=== PATIENT | female | born 1940 | race Caucasian/White ===

== ENCOUNTER 2022-01-22 08:18 | Emergency (ER) | payer OTHER ==
[~2022-01-22] VITALS: Ht 167.6 cm; Wt 63.5 kg
[2022-01-22 08:37] VITALS: BP_SYST 145
[2022-01-22] MEDS ORDERED: MAG HYDROX/AL HYDROX/SIMETH 30 ML, DICYCLOMINE HCL 20 MG, LIDOCAINE VISCOUS 2% 15ML (PO... PO ONE ×3 (09:15)
[2022-01-22 10:03] LABS: BASOPHILS # (AUTO) 0.4 K/uL (0.0-0.2); BASOPHILS % (AUTO) 4.4 % (0.0-2.0); EOSINOPHILS # (AUTO) 0.1 K/uL (0.0-0.4); EOSINOPHILS % (AUTO) 1.2 % (0.0-4.0); HEMATOCRIT 36.5 % (36-48); HEMOGLOBIN 12.1 g/dL (12.0-16.0); LYMPHOCYTES # (AUTO) 0.7 K/uL (1.0-5.5); LYMPHOCYTES % (AUTO) 8.8 % (20.5-51.5); MEAN CORPUSCULAR HEMOGLOBIN 30 pg (27-31); MEAN CORPUSCULAR HGB CONC 33 % (32-36); MEAN CORPUSCULAR VOLUME 89 fL (79.0-98.0); MONOCYTES # (AUTO) 0.9 K/uL (0.0-1.0); MONOCYTES % (AUTO) 10.7 % (1.7-9.3); NEUTROPHILS % (AUTO) 74.9 % (40.0-70.0); PLATELET COUNT (AUTO) 197 K/uL (130-430); RED BLOOD CELL COUNT(AUTO) 4.09 MIL/uL (4.2-6.2); RED CELL DISTRIBUTION WIDTH 18.6 % (9.0-15.0); WHITE BLOOD COUNT (AUTO) 8.1 K/uL (4.8-10.8)
[2022-01-22 10:20] LABS: ANION GAP 5 (5-15); CALCIUM 7.9 mg/dL (8.4-11.0); CHLORIDE 98 mmol/L (98-107); CREATININE 0.66 mg/dL (0.55-1.30); GLUCOSE 104 mg/dL (70-99); SODIUM SERUM 132 mmol/L (136-145); UREA NITROGEN, BLOOD 11 mg/dL (8-21)
[2022-01-22 10:26] LABS: ALANINE AMINOTRANSFERASE 17 U/L (12-78); ALBUMIN 3.3 g/dL (3.4-4.8); ASPARTATE AMINOTRANSFERASE 13 U/L (10-37); LIPASE 124 U/L (73-393); TOTAL BILIRUBIN 0.4 mg/dL (0.0-1.0)
[2022-01-22 11:47] LABS: BILIRUBIN,URINE NEGATIVE (NEGATIVE); BLOOD, URINE 3+ (NEGATIVE); CLARITY/URINE CLEAR (CLEAR); COLOR,URINE YELLOW (YELLOW); GLUCOSE,URINE NEGATIVE (NEGATIVE); KETONES,URINE NEGATIVE (NEGATIVE); LEUKOCYTE ESTERASE ,URINE NEGATIVE (NEGATIVE); NITRITE, URINE NEGATIVE (NEGATIVE); PH,URINE 6.5 (5.0-8.0); PROTEIN URINE NEGATIVE (NEGATIVE); UROBILINOGEN,URINE 0.2 (0.2-1.0)
[2022-01-22] MEDS ORDERED: ANT30 PO (12:03)
[2022-01-22] MEDS ORDERED: PRO40 PO (12:03)
[2022-01-22] MEDS ORDERED: DICY10CA13 PO (12:03)
[2022-01-22 13:18] LABS: BACTERIA,URINE FEW /HPF (None Seen); WBC,URINE 0-3 /HPF (0-3)
== END 2022-01-22 12:09 | disposition home or self-care (01) ==
LOC: SED 08:18
DX: C90.00 Multiple myeloma not having achieved remission (principal); K21.9 Gastro-esophageal reflux disease without esophagitis; I10 Essential (primary) hypertension; Z88.5 Allergy status to narcotic agent; Z79.899 Other long term (current) drug therapy
CPT/HCPCS: 36415; 74021; 80053; 81000; 83690; 85025; 99284; J2001

== ENCOUNTER 2022-02-04 10:38 | Emergency (ER) | payer OTHER ==
[~2022-02-04] VITALS: Ht 167.6 cm; Wt 62.1 kg
[~2022-02-04 10:38] MED LIST: ANT30 PO; DICY10CA13 PO; PRO40 PO
[2022-02-04 11:11] VITALS: BP_SYST 122
--- NOTE | 2022-02-04 11:18 | NUR ---
ERMD AT BEDSIDE
--- NOTE | 2022-02-04 11:20 | NUR ---
PLACED ON BED WITH ALL RAILS UP AND AT LOWEST LEVEL. VITAL SIGNS OBTAINED AND STABLE.
--- NOTE | 2022-02-04 11:20 | NUR ---
PT PLACED IN BED ON MONITOR, B/P, PULSE OX
[2022-02-04 11:22] VITALS: BP_SYST 122
[2022-02-04] MEDS ORDERED: DIPHENOXYLATE HCL/ATROP SULF 2.5 MG TAB PO ONE (12:45)
[2022-02-04] MEDS ORDERED: NACL 0.9% 1,000 ML IV ONE (12:45)
[2022-02-04 13:13] LABS: BASOPHILS % (AUTO) 0.4 % (0.0-2.0); EOSINOPHILS % (AUTO) 0.3 % (0.0-4.0); HEMATOCRIT 31.5 % (36-48); HEMOGLOBIN 10.2 g/dL (12.0-16.0); LYMPHOCYTES # (AUTO) 1.3 K/uL (1.0-5.5); LYMPHOCYTES % (AUTO) 33.9 % (20.5-51.5); MEAN CORPUSCULAR HEMOGLOBIN 29 pg (27-31); MEAN CORPUSCULAR HGB CONC 33 % (32-36); MEAN CORPUSCULAR VOLUME 89 fL (79.0-98.0); MONOCYTES # (AUTO) 0.2 K/uL (0.0-1.0); MONOCYTES % (AUTO) 6.1 % (1.7-9.3); NEUTROPHILS # (AUTO) 2.2 K/uL (1.8-7.7); NEUTROPHILS % (AUTO) 59.3 % (40.0-70.0); PLATELET COUNT (AUTO) 188 K/uL (130-430); RED BLOOD CELL COUNT(AUTO) 3.56 MIL/uL (4.2-6.2); RED CELL DISTRIBUTION WIDTH 19.7 % (9.0-15.0); WHITE BLOOD COUNT (AUTO) 3.8 K/uL (4.8-10.8)
[2022-02-04 13:19] LABS: ANION GAP 7 (5-15); CALCIUM 7.1 mg/dL (8.4-11.0); CHLORIDE 99 mmol/L (98-107); CREATININE 0.72 mg/dL (0.55-1.30); GLUCOSE 131 mg/dL (70-99); POTASSIUM 3.3 mmol/L (3.5-5.1); SODIUM SERUM 132 mmol/L (136-145); UREA NITROGEN, BLOOD 12 mg/dL (8-21)
[2022-02-04 13:33] LABS: TOTAL BILIRUBIN 0.3 mg/dL (0.0-1.0)
[2022-02-04 13:37] LABS: ALANINE AMINOTRANSFERASE 39 U/L (12-78); ALBUMIN 2.6 g/dL (3.4-4.8); ASPARTATE AMINOTRANSFERASE 43 U/L (10-37)
[2022-02-04] MEDS ORDERED: POTASSIUM CHLORIDE 20 MEQ/PKT PACKET PO ONE (14:15)
[2022-02-04] MEDS ORDERED: LOPE2CAP PO (14:20)
[2022-02-04] MEDS ORDERED: LOM2.5 PO (14:20)
--- NOTE | 2022-02-04 15:04 | NUR ---
A/OX4 VSS VERBALIZED UNDERSTANDING OF DC INSTRUCTIONS, ALL QUESTIONS ANSWERED, STATED WILL CALL FOR AN UBER.
--- NOTE | 2022-02-04 15:05 | NUR ---
Patient given written and verbal discharge instructions and verbalizes understanding. ER MD discussed with patient the results and treatment provided. Patient in stable condition. Rx of given. Patient educated on pain management and to follow up with PMD. Pain Scale []. Opportunity for questions provided and answered. Medication side effect fact sheet provided.
== END 2022-02-04 15:05 | disposition home or self-care (01) ==
LOC: SED 10:38
DX: U07.1 COVID-19 (principal); A08.39 Other viral enteritis; E86.0 Dehydration; E87.6 Hypokalemia; R19.7 Diarrhea, unspecified; R05.9 Cough, unspecified; I10 Essential (primary) hypertension; K21.9 Gastro-esophageal reflux disease without esophagitis; Z88.5 Allergy status to narcotic agent
CPT/HCPCS: 36415; 80053; 85025; 87426; 96360; 99283; J7030